=== PATIENT | male | born 1955 | race Caucasian/White ===

== ENCOUNTER → 2018-02-24 14:19 | Outpatient (CLI) | payer OTHER, SELFPAY | PROVIDERS: Family Provider Family Medicine Geriatric Medicine; PCP Family Medicine Geriatric Medicine; Visit Provider Family Medicine Geriatric Medicine | DX: Z12.5 Encounter for screening for malignant neoplasm of prostate (principal) ==

== ENCOUNTER 2022-12-24 15:09 | Emergency (ER) | payer MEDICARE, SELFPAY ==
[2022-12-24 15:09] VITALS: BP 149/84; PULSE 66; RESP 16; TEMP 36.2; O2SAT 99; BMI 29.0
--- NOTE | 2022-12-24 15:51 | CT_ITS ---
STUDY: CT BRAIN WITHOUT CONTRAST REASON FOR EXAM: Male, 67 years old. Injury/Pain RADIATION DOSAGE (If Supplied By Facility): CTDIvol = ( 47.06 ) mGy, DLP = ( 943.26 ) mGycm TECHNIQUE: Transaxial CT imaging of the brain was performed without administration of intravenous contrast material. Individualized dose optimization techniques were used for this CT. COMPARISON: October 22, 2016 FINDINGS: Mild left parietal scalp swelling. Normal calvarium. Normal size ventricles and extra-axial spaces for the patient''s age. Normal white matter tracts of the cerebral hemispheres. Normal basal ganglia and thalami. Normal brainstem. Normal cerebellum. There is no intracranial hemorrhage. There are no findings of an acute ischemic infarction. Normal visualized paranasal sinuses. CT/Brain/Head without Contrast IMPRESSION: No acute intracranial pathology of the brain. Mild left parietal scalp swelling. Electronically Signed: Warren Biggs DO at 16:51 EDT ,
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
--- NOTE | 2022-12-24 16:14 | RAD_ITS ---
STUDY: X-RAY - LEFT CLAVICLE REASON FOR EXAM: Male, 67 years old. Injury/Pain TECHNIQUE: 2 view(s) of the clavicle. COMPARISON: None. FINDINGS: There is a midshaft displaced comminuted fracture of the clavicle. Normal acromioclavicular articulation. Normal visualized sternoclavicular articulation. Normal visualized pulmonary apex. RAD/Clavicle IMPRESSION: Midshaft fracture of the clavicle. Electronically Signed: Warren Biggs DO at 16:53 EDT Reading Location ID and State: [facility] / [place] Tel [phone], Service support ,
[2022-12-24] MEDS: HYDROcodone Bitartrate/Apap 5/325 Tablet PO (17:07)
== END 2022-12-24 17:33 | disposition home or self-care (01) ==
PROVIDERS: Emergency Provider Emergency Medicine; PCP Family Medicine Geriatric Medicine; Referring Provider Emergency Medicine; Visit Provider Emergency Medicine
DX: S42.022A Displaced fracture of shaft of left clavicle, initial encounter for closed fracture (principal); S09.90XA Unspecified injury of head, initial encounter; V28.09XA Other motorcycle driver injured in noncollision transport accident in nontraffic accident, initial encounter
CPT/HCPCS: 70450; 73000; 99283

== ENCOUNTER → 2023-08-10 | Outpatient (CLI) | payer MEDICARE, SELFPAY ==
--- NOTE | 2023-08-10 | TOBX_PTH ---
PATIENT: LINDSAY FAJARDO III LOC: [facility] U#:[id number] AGE/SX: 68/M ROOM: RE08/10/[address]: LISE WALTERS MD : 1955 BED: DIS: 08/10/2023 SPEC #: [id number] RECD: 08/11/23 08:26 STATUS: LUIS F REAnnel #: [id number] ROMAN: 08/10/23 00:[address]: LISE WALTERS DEPT: SURGICAL PATHOLOGY RECD BY: Declan Abarca ENTERED: 08/11/23 08:26 SP TYPE: TONGUE BX OTHR DR: Dr. Izaiah Briceno MD Tissues: Tongue, NOS Procedures: Surgery Specimen Level IV HEADER OPERATION: Excisional biopsy of right trigone papillary lesion PRE-OP DIAGNOSIS: Papillary lesion TISSUE SUBMITTED: Right trigone papillary lesion MICROSCOPIC DIAGNOSIS Right trigone papillary lesion, biopsy: Consistent with squamous papilloma. AM:shilpa 08/12/2023 MICROSCOPIC DESCRIPTION Slides are reviewed. GROSS DESCRIPTION Received in fixative is one container labeled with the patient's name and designated papilloma lesion. The specimen consists of one irregular fragment of light smith soft tissue that measures 0.1 x 0.1 x <0.1 cm. The specimen is totally submitted in one cassette. / AM:shilpa 08/11/2023 TC:5 CPT: 44083
== END | disposition home or self-care (01) ==
PROVIDERS: PCP Family Medicine Geriatric Medicine; Referring Provider Dentist Oral and Maxillofacial Surgery; Visit Provider Dentist Oral and Maxillofacial Surgery
DX: D36.7 Benign neoplasm of other specified sites (principal)
CPT/HCPCS: 88305

== ENCOUNTER → 2023-10-29 | Outpatient (CLI) | payer MEDICARE, OTHER, SELFPAY ==
[2023-10-29 09:15] LABS: Absolute Lymphocyte Count 1.41 X10^3/uL (0.83-4.51); Absolute Neutrophil Count 5.5 X10^3/uL (2.0-7.7); Basophil# 0.06 X10^3/uL; Basophil% 0.8 % (0-1); Eosinophil# 0.13 X10^3/uL; Eosinophils% 1.7 % (0-5); Hematocrit 48.3 % (40-54); Hemoglobin 15.2 g/dL (13.0-16.5); Lymphocyte # 1.41 X10^3/ul (0.83-4.51); Lymphocyte % 18.1 % (19-41); Mean Corp Hgb Conc 31.5 g/dL (32-36); Mean Corpuscular Hgb 28.6 pg (27.0-32.0); Mean Platelet Vol. 9.5 fl (6.2-12.0); Monocyte# 0.71 X10^3/uL; Monocyte% 9.1 % (0-10); NRBC Flagged by Analyzer 0 % (0-5); Neutrophil # 5.48 X10^3/uL (2.7-7.7); Neutrophil % 70.2 % (47-70); Platelet Count 233 K/mm3 (150-450); RBC Distribution Width CV 13.1 % (11.6-14.6); RBC Distribution Width SD 43.9 fl (35.1-43.9); Red Blood Count 5.31 M/mm3 (4.6-6.2); White Blood Count 7.8 K/mm3 (4.4-11.0)
[2023-10-29 09:52] LABS: AST(SGOT) 20 U/L (15-37); Alanine Aminotransfer ALT/SGPT 34 U/L (16-61); Albumin, Serum 3.8 g/dL (3.2-5.0); Alkaline Phosphatase 86 U/L (45-117); Anion Gap 3 (5-15); BUN 15 mg/dL (7-18); Calcium,Total 8.9 mg/dL (8.5-10.1); Chloride 108 mmol/L (98-107); Cholesterol 256 mg/dL (200); Creatinine, Serum 0.94 mg/dL (0.70-1.30); EST Glomerular Filtration Rate 86 mL/min (>60); Est Glom Filt Rate - Afr Amer 104 mL/min (>60); Glucose 112 mg/dL (74-106); High Density Lipoprotein 61 mg/dL; PSA,Total - Annual Screen 0.65 ng/mL (0.00-4.00); Potassium 4.3 mmol/L (3.5-5.1); Protein, Total 7.8 g/dL (6.4-8.2); Sodium Level 140 mmol/L (136-145); Thyroid Stim Hormone (TSH) 3.95 uIU/mL (0.358-3.74); Triglycerides 100 mg/dL; Very Low Density Lipoprotein 20 mg/dL (5-40)
[2023-10-29 10:28] LABS: Hepatitis C Antibody Non-Reactive (Nonreactive)
== END | disposition home or self-care (01) ==
PROVIDERS: PCP Family Medicine Geriatric Medicine; Referring Provider Family Medicine Geriatric Medicine; Visit Provider Family Medicine Geriatric Medicine
DX: Z12.5 Encounter for screening for malignant neoplasm of prostate (principal); E78.5 Hyperlipidemia, unspecified; Z13.89 Encounter for screening for other disorder; R68.83 Chills (without fever)
CPT/HCPCS: 36415; 80053; 80061; 84153; 84443; 85025; 86803; 87631; G0103

== ENCOUNTER → 2023-11-27 | Outpatient (CLI) | payer MEDICARE, OTHER, SELFPAY ==
[2023-11-27 11:21] LABS: Free T3 2.7 pg/mL (2.18-3.98); T4 Free Direct 0.94 ng/dL (0.76-1.46); Thyroid Stim Hormone (TSH) 2.82 uIU/mL (0.358-3.74)
== END | disposition home or self-care (01) ==
LOC: POLAB3 10:08
PROVIDERS: PCP Family Medicine Geriatric Medicine; Visit Provider Family Medicine Geriatric Medicine
DX: E03.9 Hypothyroidism, unspecified (principal)
CPT/HCPCS: 36415; 84439; 84443; 84481

== ENCOUNTER → 2024-06-21 | Outpatient (CLI) | payer MEDICARE, OTHER, SELFPAY ==
--- NOTE | 2024-06-21 12:32 | ECHOD_ITS ---
Reason For Study: Abn EKG Procedure This was a 2D Doppler, Color Flow transthoracic echocardiogram. Exam performed in department. Left Ventricle Normal LV size. Left ventricular systolic function is normal. The left ventricular ejection fraction is 60 %. No regional wall motion abnormalities noted. Right Ventricle Normal RV size. Normal systolic function. Atria Normal left atrium. Normal right atrium. Mitral Valve Normal mitral valve. Tricuspid Valve Normal tricuspid valve. Aortic Valve Trisinus/trileaflet aortic valve. Pulmonic Valve Normal pulmonic valve. Great Vessels Normal aortic root. The pulmonary artery is normal size. Normal inferior vena cava. Pericardium/Pleural No pericardial effusion. MMode/2D Measurements & Calculations LVIDd: 4.6 cm IVSd: 1.2 cm LVOT diam: 2.2 cm LVIDs: 2.5 cm LVPWd: 1.1 cm LVOT area: 3.9 cm2 RVDd: 3.3 cm FS: 46.2 % asc Aorta Diam: 3.6 cm LAV(MOD-sp4): 56.8 ml LVAd ap4: 26.0 cm2 LVLd ap4: 8.1 cm EDV(MOD-sp4): 67.8 ml EDV(sp4-el): 71.1 ml LVAs ap4: 14.5 cm2 LVLs ap4: 6.9 cm ESV(MOD-sp4): 25.5 ml ESV(sp4-el): 25.8 ml EF(MOD-sp4): 62.3 % EF(sp4-el): 63.7 % LVAd ap2: 26.2 cm2 SV(MOD-sp4): 42.3 ml SV(MOD-sp2): 47.4 ml LVLd ap2: 8.3 cm EDV(MOD-sp2): 70.1 ml EDV(sp2-el): 69.9 ml LVAs ap2: 12.9 cm2 LVLs ap2: 6.8 cm ESV(MOD-sp2): 22.7 ml ESV(sp2-el): 20.9 ml EF(MOD-sp2): 67.6 % SV(sp4-el): 45.3 ml LA dimension(2D): 3.7 cm LA A4 area: 19.0 cm2 RA A4 area: 11.1 cm2 TAPSE: 2.6 cm Time Measurements MV dec time: 0.20 sec Doppler Measurements & Calculations MV E max john: 84.4 cm/sec Lat Peak E' John: 11.7 cm/sec Med Peak E' John: 8.8 cm/sec MV A max john: 83.1 cm/sec E/E' lat: 7.2 E/E' med: 9.6 MV E/A: 1.0 Ao V2 max: 141.9 cm/sec LV V1 max: 107.0 cm/sec MV dec slope: 417.2 cm/sec2 Ao max P.1 mmHg LV V1 max P.6 mmHg Ao V2 mean: 97.3 cm/sec LV V1 mean P.1 mmHg Ao mean P.3 mmHg LV V1 mean: 67.3 cm/sec Ao V2 VTI: 30.6 cm LV V1 VTI: 24.5 cm AV (velocity ratio): 0.80 MAGED(I,D): 3.1 cm2 MAGED(V,D): 2.9 cm2 SV(LVOT): 94.9 ml PA V2 max: 115.4 cm/sec PA max PG (full): 3.4 mmHg ECHO/Echo Complete Interpretation Summary Normal LV size. Left ventricular systolic function is normal. The left ventricular ejection fraction is 60 %. Structurally normal valves. Ordering Physician: Marilee Ritchie Referring Physician: Marilee Ritchie Performed By: Lauren Moctezuma RDCS and Student
== END | disposition home or self-care (01) ==
PROVIDERS: PCP Internal Medicine; Referring Provider Internal Medicine; Visit Provider Internal Medicine
DX: R94.31 Abnormal electrocardiogram [ECG] [EKG] (principal)
CPT/HCPCS: 93306

== ENCOUNTER → 2025-07-21 | Outpatient (CLI) | payer MEDICARE, OTHER, SELFPAY | END | disposition home or self-care (01) | LOC: PSN 12:21 | PROVIDERS: PCP Internal Medicine; Referring Provider Internal Medicine; Visit Provider Internal Medicine | DX: R94.2 Abnormal results of pulmonary function studies (principal) | CPT/HCPCS: 94060; 94726; 94729 ==